=== PATIENT | male | born 1950 | race Caucasian/White ===

== ENCOUNTER 2016-10-05 10:21 | Emergency (ER) | payer OTHER, MEDICAID ==
[2016-10-05 10:57] VITALS: RESP 16; TEMP 99.4; O2SAT 98; BMI 23.9
--- NOTE | 2016-10-05 11:17 | ED PDOC ---
Arrival/HPI - General Chief Complaint: Upper Extremity Problem/Injury Time Seen by Provider: 10/05/16 11:13 Historian: Patient - History of Present Illness Narrative History of Present Illness (Text): 10/05/16 11:14 This 66 yo male presents to this ED c/o left elbow pain and swelling x 3 days. Patient stated he hit his left elbow against the corner of furniture. Patient is right hand dominant. Denies other complains. Time/Duration: Other (3 days) Quality: Aching Context: Home Past Medical History - Provider Review Nursing Documentation Reviewed: Yes - Cardiac Hx Cardiac Disorders: Yes Hx Hypertension: Yes - Pulmonary Hx Respiratory Disorders: No - Neurological Hx Neurological Disorder: No Hx Alzheimer's Disease: No - HEENT Hx HEENT Disorder: No - Renal Hx Renal Disorder: No - Endocrine/Metabolic Hx Endocrine Disorders: No - Hematological/Oncological Hx Blood Disorders: No - Integumentary Hx Dermatological Disorder: No - Musculoskeletal/Rheumatological Hx Musculoskeletal Disorders: Yes - Gastrointestinal Hx Gastrointestinal Disorders: No - Genitourinary/Gynecological Hx Genitourinary Disorders: No - Psychiatric Hx Psychophysiologic Disorder: No Hx Substance Use: No - Surgical History Hx Eye Surgery: Yes Hx Orthopedic Surgery: Yes Family/Social History - Physician Review Nursing Documentation Reviewed: Yes Family/Social History: No Known Family HX Smoking Status: Never Smoked Hx Alcohol Use: Yes Frequency of alcohol use: Socially Hx Substance Use: No Allergies/Home Meds Allergies/Adverse Reactions: Allergies No Known Allergies Allergy (Verified 10/05/16 10:40) Home Medications: Home Meds Medication Instructions Recorded Confirmed Calcium Carbonate [Calcium] 0 mg PO DAILY 10/05/16 10/05/16 Ergocalciferol (Vitamin D2) 0 unit PO DAILY 10/05/16 10/05/16 [Vitamin D] Nebivolol [Bystolic] 5 mg PO DAILY 10/05/16 10/05/16 Review of Systems - Review of Systems Constitutional: Normal. absent: Fatigue, Weight Change, Fevers Eyes: Normal. absent: Vision Changes ENT: Normal Respiratory: Normal. absent: SOB, Cough Cardiovascular: Normal. absent: Chest Pain, Palpitations Gastrointestinal: Normal. absent: Abdominal Pain, Nausea, Vomiting Genitourinary Male: Normal. absent: Dysuria, Frequency, Hematuria Musculoskeletal: Other ((+) left posterior elbow pain ands swelling) Skin: Normal. absent: Rash Neurological: Normal. absent: Headache, Dizziness Endocrine: Normal Hemo/Lymphatic: Normal Psychiatric: Normal Physical Exam Vital Signs Temp Pulse Resp BP Pulse Ox 10/05/16 13:44 84 16 139/82 98 10/05/16 10:40 99.4 F 89 16 148/89 98 Temperature: Afebrile Blood Pressure: Normal Pulse: Regular Respiratory Rate: Normal Appearance: Positive for: Well-Appearing, Non-Toxic, Comfortable Pain Distress: None Mental Status: Positive for: Alert and Oriented X 3 - Systems Exam Head: Present: Atraumatic, Normocephalic Pupils: Present: PERRL Extroacular Muscles: Present: EOMI Conjunctiva: Present: Normal Mouth: Present: Moist Mucous Membranes Upper Extremity: Present: Normal ROM, NORMAL PULSES, Tenderness, Swelling, Neurovascularly Intact, Temperature Abnormalties, Capillary Refill < 2s. No: Cyanosis, Edema Lower Extremity: Present: Normal Inspection, NORMAL PULSES, Normal ROM, Neurovascularly Intact, Capillary Refill < 2 s. No: Edema, CALF TENDERNESS Neurological: Present: GCS=15, CN II-XII Intact, Speech Normal, Motor Func Grossly Intact, Normal Sensory Function, Normal Cerebellar Funct, Gait Normal Skin: Present: Warm, Dry, Normal Color. No: Rashes Psychiatric: Present: Alert, Oriented x 3 Medical Decision Making ED Course and Treatment: 10/05/16 12:59 Patient is resting comfortably, and is in no acute distress. Patient was instructed to follow up with PMD in 1-2 days for further evaluation nonspecific redness of left elbow. I will also prescribe ABX 10/07/16 14:33 I spoke with patient 9on cell phone. He said he saw his PMD yesterday. He said left elbow redness, and swelling has improved. He also said he has an appointment to see orthopedist next week. Re-evaluation Time: 13:00 Reassessment Condition: Re-examined, Improved - Lab Interpretations Lab Results: Lab Results 10/05/16 11:35: Uric Acid 5.1 I have reviewed the lab results: Yes Interpretation: No clinic. lab abnormalty - RAD Interpretation Narrative RAD Interpretations (Text): 10/05/16 12:59 Accession No. : [id number] Patient Name / ID : [id number] PACHECO / [id number] Exam Date : 10/05/2016 11:07:40 ( Approved ) Study Comment : Sex / Age : M / 66Y Creator : Rocky Jolly MD Dictator : Rocky Jolly MD Internal Grinding Machine Operator : Gas Usage Meter Clerk : Rocky Jolly MD Approver2 : Report Date : 10/05/2016 12:54:28 My Comment : PROCEDURE: Radiographs of the left elbow. HISTORY: left elbow pain COMPARISON: No prior. FINDINGS: BONES: Normal. No fracture. JOINTS: Normal. No osteoarthritis. SOFT TISSUES: Soft tissue swelling posterior to the elbow JOINT EFFUSION: None. OTHER FINDINGS: None IMPRESSION: Unremarkable radiographs of the left elbow. Radiology Orders: 10/05/16 11:14 ELBOW LEFT 3 VIEWS ROUTINE [RAD] Stat - Medication Orders Current Medication Orders: Discontinued Medications Amoxicillin/Clavulanate Potassium (Augmentin 875 Mg-125 Mg Tab) 1 tab PO STAT STA PRN Reason: Protocol Stop: 10/05/16 13:00 Ketorolac Tromethamine (Toradol) 60 mg IM STAT STA Stop: 10/05/16 11:14 Last Admin: 10/05/16 11:27 Dose: 60 mg Disposition/Present on Arrival - Present on Arrival Any Indicators Present on Arrival: No History of DVT/PE: No History of Uncontrolled Diabetes: No Urinary Catheter: No History of Decub. Ulcer: No History Surgical Site Infection Following: None - Disposition Have Diagnosis and Disposition been Completed?: Yes Diagnosis: Elbow pain Disposition: HOME/ ROUTINE Disposition Time: 13:00 Patient Plan: Discharge Condition: GOOD Discharge Instructions (ExitCare): Swollen Joint (ED) Additional Instructions: Call private doctor for follow up visit in 1-2 days. take medication as instructed. Return to emergency if symptoms worsen or if skin redness worsen Prescriptions: Amoxicillin/Clavulanate [Augmentin 875 MG-125 MG] 1 tab PO BID #14 tab Naproxen 500 mg PO BID #14 tab Referrals: PCP,NO [Primary Care Provider] - Follow up with primary Marine Cruz MD [Staff Provider] - Follow up with primary Forms: WORK NOTE
--- NOTE | 2016-10-05 12:56 | RAD ---
PROCEDURE: Radiographs of the left elbow. HISTORY: left elbow pain COMPARISON: No prior. FINDINGS: BONES: Normal. No fracture. JOINTS: Normal. No osteoarthritis. SOFT TISSUES: Soft tissue swelling posterior to the elbow JOINT EFFUSION: None. OTHER FINDINGS: None IMPRESSION: Unremarkable radiographs of the left elbow.
[2016-10-05] MEDS ORDERED: Amoxicillin-Clav 875-125 mg Tab PO STA (12:59)
[2016-10-05 13:45] VITALS: BP 139/82; PULSE 84
== END 2016-10-05 13:45 | disposition home or self-care (01) ==
LOC: ED 10:21
DX: M25.522 Pain in left elbow (principal)
CPT/HCPCS: 73080; 84550; 96372; 99284; J1885